=== PATIENT | male | born 1955 | race Caucasian/White ===

== ENCOUNTER 2019-03-05 09:25 | Inpatient (IN) | payer MEDICARE, BC ==
[2019-03-05] MEDS: LACTATED RINGER'S 1,000 ML IV (10:30)
[2019-03-05] MEDS ORDERED: GELATIN SIZE 100 SPONGE (11:54)
[2019-03-05] MEDS ORDERED: DESFLURANE 15 MIN (12:27)
[2019-03-05] MEDS ORDERED: PROPOFOL 200 MG INJ (12:27)
[2019-03-05] MEDS ORDERED: SUCCINYLCHOLINE CHLORIDE 100 MG/5 ML SYG IV (12:28)
[2019-03-05] MEDS ORDERED: LIDOCAINE 1% (MDV) 20 ML INJ (12:28)
[2019-03-05] MEDS ORDERED: MIDAZOLAM 1 MG/ML 2 ML INJ (12:28)
[2019-03-05] MEDS ORDERED: ROCURONIUM 50 MG INJ ×2 (12:28→15:08)
[2019-03-05] MEDS ORDERED: ONDANSETRON 4 MG INJ ×2 (12:45→15:27)
[2019-03-05] MEDS ORDERED: CEFAZOLIN 1 GM INJ (12:45)
[2019-03-05] MEDS ORDERED: DEXAMETHASONE 4 MG/ML 5 ML INJ (12:46)
[2019-03-05] MEDS: BUPIVACAINE 0.5%/EPI (SDV) 10 ML INJ (13:29)
[2019-03-05] MEDS: HEPARIN 1000 UNITS/ML 10 ML INJ (13:30)
[2019-03-05] MEDS: CA CHLORIDE 10% 10 ML SYRINGE (13:30)
[2019-03-05] MEDS: THROMBIN 5000 UNIT (RECOTHROM) VIAL ×2 (13:31→14:56)
[2019-03-05] MEDS: POLYMYXIN/BACITRACIN 1L IRRIG (13:31)
[2019-03-05] MEDS ORDERED: SUGAMMADEX SODIUM 200 MG/2 ML VIAL IV (14:59)
[2019-03-05] MEDS: BUPIVACAINE 0.25% (MPF) 30 ML INJ (15:01)
[2019-03-05] MEDS ORDERED: morphine 10 MG INJ (15:03)
[2019-03-05] MEDS ORDERED: CEPASTAT LOZENGE MT (15:30)
[2019-03-05] MEDS ORDERED: BISACODYL 10 MG SUPP PR (15:30)
[2019-03-05] MEDS ORDERED: ACETAMINOPHEN 325 MG TAB PO (15:30)
[2019-03-05] MEDS ORDERED: NALOXONE (0.4 MG/ML) INJ IV (15:30)
[2019-03-05] MEDS ORDERED: DIPHENHYDRAMINE 50 MG INJ IV (15:30)
[2019-03-05] MEDS ORDERED: HYDROCODONE/APAP (5/325) TAB PO (15:30)
[2019-03-05] MEDS ORDERED: DIPHENHYDRAMINE 25 MG CAP PO (15:30)
[2019-03-05] MEDS ORDERED: MAGNESIUM HYDROXIDE 30ML CUP PO (15:30)
[2019-03-05] MEDS: CEFAZOLIN 1 GM/50 ML (PMX) 50 ML IVPB ×2 (15:50→23:24)
[2019-03-05] MEDS: ONDANSETRON 4 MG INJ IV (15:52)
[2019-03-05] MEDS: D5W-0.45 NACL + KCL 20 MEQ 1,000 ML IV (16:36)
[2019-03-05] MEDS: HYDROCODONE/APAP (10/325) TAB PO ×2 (17:10→21:53)
[2019-03-05] MEDS: 1/2 NS + KCL 20 MEQ 1,000 ML IV ×2 (19:00→21:54)
[2019-03-05] MEDS: DOCUSATE SODIUM 100 MG CAP PO (20:22)
[2019-03-05] MEDS: GABAPENTIN 300 MG CAP PO (20:22)
[2019-03-05] MEDS: HYDROmorphONE 0.5 MG/0.5 ML SYG IV (20:24)
[2019-03-05] MEDS ORDERED: GABAPENTIN 300 MG CAP PO (21:00)
[2019-03-06] MEDS: HYDROCODONE/APAP (10/325) TAB PO ×3 (03:49→13:20)
[2019-03-06] MEDS: 1/2 NS + KCL 20 MEQ 1,000 ML IV ×2 (05:00→07:03)
[2019-03-06] MEDS: PANTOPRAZOLE (EC) 40 MG TAB PO (06:00)
[2019-03-06] MEDS: HYDROmorphONE 0.5 MG/0.5 ML SYG IV (07:07)
[2019-03-06] MEDS: CEFAZOLIN 1 GM/50 ML (PMX) 50 ML IVPB (08:40)
[2019-03-06] MEDS: DOCUSATE SODIUM 100 MG CAP PO (08:41)
[2019-03-06] MEDS: GABAPENTIN 300 MG CAP PO ×2 (08:41→12:44)
[2019-03-06] MEDS: LACTATED RINGER'S 1,000 ML IV (10:30)
[2019-03-06] MEDS: predniSONE 10 MG TAB PO (14:22)
[2019-03-06] MEDS: HYDROCODONE/APAP (5/325) TAB PO (16:49)
== END 2019-03-06 17:55 | disposition home or self-care (01) | DRG 520 ==
LOC: REC 09:25 → MS1 16:10
PROC: 01NB0ZZ Release Lumbar Nerve, Open Approach (ICD-10-PCS; principal; 2019-03-05 12:00)
PROC: 00BT0ZZ Excision of Spinal Meninges, Open Approach (ICD-10-PCS; 2019-03-05 12:00)
PROC: 4A11X4G Monitoring of Peripheral Nervous Electrical Activity, Intraoperative, External Approach (ICD-10-PCS; 2019-03-05 12:00)
DX: M48.061 Spinal stenosis, lumbar region without neurogenic claudication (principal); M54.16 Radiculopathy, lumbar region; G96.19 Other disorders of meninges, not elsewhere classified
CPT/HCPCS: 72020; 80048; 83036; 83735; 84560; 85025; 86999; 88304; 88311; 97110; 97116; 97161; 97530